=== PATIENT | male | born 2005 | race Two or more races ===

== ENCOUNTER 2023-09-21 07:38 | Outpatient (CLI) | payer OTHER ==
[~2023-09-21 07:38] MED LIST: GADOTERATE MEGLUMINE 10 MMOL/20 ML VIAL ONE; GADOTERATE MEGLUMINE 5 MMOL/10 ML VIAL ONE
--- NOTE | 2023-09-23 11:26 | MRI Report ---
PROCEDURE: MRI brain with and without contrast INDICATIONS: 17-year-old male with history of syncope TECHNIQUE: Multiplanar multisequential MR images of the brain were obtained before and after intrave nous contrast administration. COMPARISON: None. FINDINGS: CSF spaces: Basal cisterns are patent. No extra-axial fluid collections. Ventricles are normal in size and shape. Brain: No midline shift. No intracranial bleeds or masses. No abnormal intracranial enhancement. The brainstem appears normal. Diffusion-weighted images demonstrate no acute infarct. Normal intrav ascular flow voids are present. Skull and face: Calvarial marrow is normal in signal. Orbits appear normal. Sinuses: Sinuses and mastoids appear clear. IMPRESSION: Normal MRI of the brain with and without contrast Reviewed by: Steven Robison MD on 09/23/2023 10:24 AM [facility] Approved by: Steven Robison MD on 09/23/2023 10:24 AM [facility] Station ID: [id number]
== END 2023-09-21 07:39 | disposition home or self-care (01) ==
LOC: DI 07:38
DX: R55 Syncope and collapse (principal)
CPT/HCPCS: 70553; A9575

== ENCOUNTER 2023-12-17 16:04 | Emergency (ER) | payer OTHER ==
--- NOTE | 2023-12-17 16:28 | ED Physician Documentation ---
PD HPI CHEST PAIN - Stated complaint Stated Complaint: CP - Chief complaint Chief Complaint: Cardiac - History obtained from History obtained from: Patient - Additional information Additional information: Patient is a 17-year-old male presenting for evaluation of chest pain. This started approximately 1 hour ago as he was completing a 9-minute workout on a rower. Patient states he stopped with the rowing and took a break and then started doing lunges and again started having chest pain. He describes it in the middle of his chest as a tightness. The pain is easing up now. There is no radiation to the pain. Patient has been having a similar symptoms over the past several months and has had extensive workup with cardiology at that again. He reports having had a stress test as well as an echocardiogram in August without any clear results. He also had a Zio patch but unfortunately this was lost in transit and he is scheduled to have it repeated in another week. They have yet to find a cause for his episodes of chest pain which she states often occur during exercise. He denies a family history of early coronary artery disease. Does not take any regular medications. Denies drug or alcohol use. No recent travel. No history of PE or DVT. He reports that he did have a syncopal episode during one of his cardiac evaluations and was taken to the ER at [facility] where he was also evaluated and still without any clear causes for his symptoms. He reports he was placed on limited duty for work but was not placed on any restrictions for physical activity. He is currently enrolled in a program through the [employer] to help him lose weight. Review of Systems Constitutional: denies: Fever Cardiac: reports: Chest pain / pressure Respiratory: denies: Dyspnea GI: denies: Abdominal Pain Musculoskeletal: denies: Extremity swelling PD PAST MEDICAL HISTORY - Past Medical History Past Medical History: No Cardiovascular: None Respiratory: None Neuro: None Endocrine/Autoimmune: None GI: None : None HEENT: None Psych: None Musculoskeletal: None Derm: None - Past Surgical History Past Surgical History: No - Present Medications Home Medications: Ambulatory Orders Medication Instructions Recorded Confirmed No Known Home Medications 12/17/23 12/17/23 - Allergies Allergies/Adverse Reactions: Allergies Allergy/AdvReac Type Severity Reaction Status Date / Time No Known Drug Allergies Allergy Verified 12/17/23 16:07 - Social History Does the pt smoke?: No Smoking Status: Never smoker Does the pt drink ETOH?: No Does the pt have substance abuse?: No - Immunizations Immunizations are current?: Yes - POLST Patient has POLST: No PD ED PE NORMAL - General General: Alert and oriented X 3, No acute distress, Well developed/nourished - HEENT HEENT: Atraumatic, Moist mucous membranes, Pharynx benign - Neck Neck: Supple, no meningeal sign - Cardiac Cardiac: RRR, Strong equal pulses - Respiratory Respiratory: No respiratory distress, Clear bilaterally - Abdomen Abdomen: Normal bowel sounds, Soft, Non tender, Non distended - Derm Derm: Warm and dry - Extremities Extremities: No calf tenderness / cord - Neuro Neuro: Normal speech Results - Vitals Vitals: Vital Signs - 24 hr 12/17/23 12/17/23 12/17/23 16:07 17:12 18:33 Temperature 36.8 C Heart Rate 75 92 78 Respiratory 18 18 16 Rate Blood Pressure 136/70 H 121/96 H 134/75 H O2 Saturation 98 98 100 Oxygen O2 Source Room air - EKG (time done) 1613 EKG releavant findings:: EKG personally interpreted by author of this note. Relevant findings are: Rate 78, normal sinus rhythm, no STEMI, T wave inversions in lead III, no prior for comparison - Labs Labs: Laboratory Tests 12/17/23 12/17/23 16:28 17:38 Troponin I High Sens 6.3 12.3 PD Medical Decision Making - ED course Complexity details: reviewed results, re-evaluated patient, d/w patient ED course: Patient is a 17-year-old male presenting for evaluation of chest pain that occurred during exertion. He is active duty [employer]. He has been having these episodes for several months and has had evaluation by cardiology at [facility] for this including an outpatient stress test and echocardiogram. He is scheduled to see them again on December 25 with plans to repeat the Zio patch as the prior 1 was lost in transit. Patient is EKG is reviewed here without signs of acute ischemia. CBC, chemistry and troponin x 2 were obtained and reviewed and without significant abnormalities. Chest x-ray which I reviewed is negative for effusion or cardiomegaly. Patient denies any URI symptoms or symptoms to suggest pneumonia. He has been symptom-free here. Patient counseled on need for close follow-up as well as concerning symptoms to return for. PERC negative. Departure - Departure Disposition: Home, Self Care Clinical Impression: Chest pain Condition: Stable Instructions: ED Chest Pain Atypical Unkn Cause Follow-Up: YURI Figueredo [Provider Group] Comments: Please continue to have close follow-up with your processes chemical design engineer regarding your episodes of chest pain. I would also recommend only light activity for the time being until you are seen for follow-up either by your processes chemical design engineer or by your PCM As your episodes do seem to occur more with exertion. Return to the ER with any worsening symptoms. Forms: PCP List Discharge Date/Time: 12/17/23 18:32
--- NOTE | 2023-12-17 17:00 | XRAY Report ---
PROCEDURE: Chest 1V INDICATIONS: CP TECHNIQUE: One view of the chest was acquired. COMPARISON: None. FINDINGS: Surgical changes and devices: None. Lungs and pleura: No pleural effusions or pneumothorax. Mild diffuse reticular nodular pulmonary [place] Mediastinum: Mediastinal contours appear normal. Heart size is normal. Bones and chest wall: No suspicious bony lesions. Overlying soft tissues appear unremarkable. IMPRESSION: Mild atypical pneumonia. Reviewed by: Aleja Mccallum MD on 12/17/2023 4:59 PM PST Approved by: Aleja Mccallum MD on 12/17/2023 4:59 PM [facility] Station ID: [id number]
[2023-12-17 18:46] VITALS: BP 134/75; O2SAT 100
== END 2023-12-17 18:32 | disposition home or self-care (01) ==
LOC: EDUNIT# → ED 16:04
DX: R07.9 Chest pain, unspecified (principal)
CPT/HCPCS: 36415; 84484; 93005; 99284